=== PATIENT | male | born 1995 | race Caucasian/White ===

== ENCOUNTER 2017-10-07 04:13 | Observation (INO) | payer OTHER, MEDICAID ==
[~2017-10-07] VITALS: Ht 185.4 cm; Wt 98.0 kg
[~2017-10-07 04:13] MED LIST: ALBU8.5H5 INH; BUPR300T49 PO; DIVA125T2; FLUO90CA5 PO; HYDR50CA PO; QUET50TA5 PO; RISP0.2518; RISP4TAB34 PO; TOPI15CA PO; TRAZ50TA18 PO; TRAZ5POW; TRAZODONE HCL PO
[2017-10-07 04:18] VITALS: BP 131/82
[2017-10-07 04:53] LABS: DAU SCREEN DISCLAIMER
[2017-10-07] MEDS ORDERED: HALOPERIDOL 5 MG/ML ONE (05:03)
[2017-10-07] MEDS ORDERED: HALOPERIDOL 5 MG/ML IM ONE (05:30)
[2017-10-07 05:44] LABS: HEMATOCRIT 41.3 % (39.2-51.8); HEMOGLOBIN 14.2 g/dL (13.7-18.0); WHITE BLOOD COUNT 8.8 x10^3/uL (3.4-10)
[2017-10-07 05:59] LABS: ACETAMINOPHEN < 2 mcg/mL (10-30); BLOOD UREA NITROGEN 15 mg/dL (7-18)
[2017-10-07] MEDS ORDERED: HALOPERIDOL 1 MG TABLET PO PRN (07:00)
[2017-10-07] MEDS ORDERED: ACETAMINOPHEN 325 MG TABLET PO PRN (07:00)
[2017-10-07] MEDS ORDERED: NICOTINE 7 MG/24 HR PATCH.TD24 TD SCH (07:00)
[2017-10-07] MEDS ORDERED: QUETIAPINE 25MG TABLET PO SCH (07:05)
== END 2017-10-07 17:50 ==
LOC: ED 04:31 → EDIP 06:22 → 3E 07:51
PROVIDERS: ADMIT Internal Medicine; ATTEND Internal Medicine
DX: R45.851 Suicidal ideations (principal); F12.90 Cannabis use, unspecified, uncomplicated; F20.9 Schizophrenia, unspecified; Z72.0 Tobacco use; F33.2 Major depressive disorder, recurrent severe without psychotic features; Z81.8 Family history of other mental and behavioral disorders; Z79.899 Other long term (current) drug therapy
CPT/HCPCS: 36415; 80048; 80307; 80329; 82040; 84439; 84443; 85025; 99285; G0378; G0479; G0480

== ENCOUNTER 2017-11-05 12:09 | Emergency (ER) | payer OTHER, MEDICAID ==
[~2017-11-05] VITALS: Ht 188 cm; Wt 102.0 kg
[2017-11-05 12:10] VITALS: BP 131/83
[2017-11-05] MEDS ORDERED: AMOXICILLIN/CLAV 875-125MG TABLET PO ONE (13:30)
== END 2017-11-05 14:51 | disposition home or self-care (01) ==
LOC: ED 14:45
DX: S61.451A Open bite of right hand, initial encounter (principal); Z88.0 Allergy status to penicillin; W54.0XXA Bitten by dog, initial encounter; Y93.89 Activity, other specified; Y99.8 Other external cause status; Y92.89 Other specified places as the place of occurrence of the external cause
CPT/HCPCS: 99284

== ENCOUNTER 2020-09-29 15:24 | Emergency (ER) | payer MEDICAID, OTHER ==
[~2020-09-29] VITALS: Ht 182.9 cm; Wt 104.0 kg
[~2020-09-29 15:24] MED LIST changes: -TOPI15CA PO; +TOPI15CA10 PO; -TRAZ50TA18 PO; +TRAZ50TA66 PO
[2020-09-29 15:58] VITALS: BP 126/80
[2020-09-29] MEDS ORDERED: IBUPROFEN 600 MG TABLET ONE (16:18)
--- NOTE | 2020-09-29 16:29 | NUR ---
ALL RESULTS ARE BACK AT THIS TIME. CHART UP FOR RECHECK.
[2020-09-29] MEDS ORDERED: IBUPROFEN 600 MG TABLET PO ONE (16:30)
== END 2020-09-29 16:57 | disposition home or self-care (01) ==
LOC: ED 16:13
DX: S93.491A Sprain of other ligament of right ankle, initial encounter (principal); F17.210 Nicotine dependence, cigarettes, uncomplicated; W18.39XA Other fall on same level, initial encounter; Y93.79 Activity, other specified sports and athletics; Y92.488 Other paved roadways as the place of occurrence of the external cause; Y99.8 Other external cause status
CPT/HCPCS: 99283